=== PATIENT | female | born 1995 | race African-American/Black ===

== ENCOUNTER 2025-03-16 13:32 | Emergency (ER) | payer OTHER ==
[~2025-03-16] VITALS: Ht 167.6 cm; Wt 92.0 kg
[2025-03-16 13:44] VITALS: TEMP 97.9
[2025-03-16 15:24] LABS: APPEARANCE,URINE HAZY (CLEAR); GLUCOSE, URINE (UA) NEGATIVE (NEGATIVE); LEUKOCYTE ESTERASE ,URINE LARGE (NEGATIVE); NITRATE,URINE NEGATIVE (NEGATIVE); OCCULT BLOOD,URINE SMALL (NEGATIVE); SPECIFIC GRAVITIY, URINE 1.024 (1.003-1.030)
[2025-03-16 15:25] LABS: HCG,QUAL URINE NEGATIVE (NEGATIVE)
[2025-03-16 15:33] LABS: SQUAMOUS EPITHELIAL CELL,UR Few /LPF (None Seen)
[2025-03-16] MEDS ORDERED: PHEN-846 PO (15:45)
[2025-03-16] MEDS ORDERED: CEPH-558 PO (15:45)
[2025-03-16] MEDS: PHENAZOPYRIDINE HCL 100 MG TABLET PO ONE (16:05)
[2025-03-16] MEDS: CEPHALEXIN MONOHYDRATE 500 MG CAPSULE PO ONE (16:05)
[2025-03-16 16:06] VITALS: BP 112/73; PULSE 86; RESP 18; O2SAT 99
== END 2025-03-16 16:21 | disposition home or self-care (01) ==
LOC: EMS 13:32
DX: N39.0 Urinary tract infection, site not specified (principal)
CPT/HCPCS: 81001; 84703; 87086; 99283